=== PATIENT | female | born 1980 | race American Indian/Alaskan Native ===

== ENCOUNTER 2017-05-26 18:22 | Emergency (ER) | payer BC ==
[2017-05-26 18:31] VITALS: RESP 16; O2SAT 100
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
[2017-05-26 21:29] VITALS: BP 109/72; PULSE 56; TEMP 97.9
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
== END 2017-05-26 21:46 | disposition home or self-care (01) ==
LOC: EDBD 18:22 → C.ER 18:22
DX: M25.512 Pain in left shoulder (principal); S16.1XXA Strain of muscle, fascia and tendon at neck level, initial encounter; S29.012A Strain of muscle and tendon of back wall of thorax, initial encounter; S83.92XA Sprain of unspecified site of left knee, initial encounter; S43.402A Unspecified sprain of left shoulder joint, initial encounter; V79.40XA Driver of bus injured in collision with unspecified motor vehicles in traffic accident, initial encounter